=== PATIENT | male | born 1990 | race Two or more races ===

== ENCOUNTER 2021-01-24 16:51 | Emergency (ER) | payer MEDICAID ==
[~2021-01-24] VITALS: Ht 188 cm; Wt 104.0 kg
[2021-01-24 21:00] VITALS: BP 154/96
== END 2021-01-24 21:30 ==
LOC: ER 20:09
DX: M25.511 Pain in right shoulder (principal); Z88.0 Allergy status to penicillin; F17.200 Nicotine dependence, unspecified, uncomplicated; F15.10 Other stimulant abuse, uncomplicated; W18.39XA Other fall on same level, initial encounter; Y93.89 Activity, other specified; Y92.89 Other specified places as the place of occurrence of the external cause; Y99.8 Other external cause status
CPT/HCPCS: 71045; 73000; 99284